=== PATIENT | male | born 1960 | race Caucasian/White ===

== ENCOUNTER 2016-12-19 10:50 | Day surgery (SDC) | payer MEDICAID, OTHER ==
[2016-12-17 11:31] VITALS: BMI 28.8
[~2016-12-19 10:50] MED LIST: LACTATED RINGERS 1,000 ML IV SCH; LIDOCAINE 1% 20 ML VIAL (10MG/ML) FOR IV START INTRADERMA PRN
[2016-12-19 11:03] VITALS: TEMP 97.9
[2016-12-19] MEDS ORDERED: LACTATED RINGERS 1,000 ML IV ONE (11:03)
[2016-12-19 11:28] LABS: Basophils # (A) 0.2 k/uL (0-0.2); Basophils % (A) 2 %; CH 31.7; Eosinophils # (A) 0.2 k/uL (0-0.7); Eosinophils % (A) 3 %; HCT 52.3 % (39.0-53.0); HDW 2.25; HGB 17.4 gm/dL (13.0-17.5); Luc # (Auto) 0.11; Luc % (Auto) 2; Lymphocytes # (A) 1.9 k/uL (1.0-4.8); Lymphocytes % (A) 29 %; MCH 31.1 pg (25.0-35.0); MCHC 33.2 g/dL (31.0-37.0); MCV 93.6 fL (80.0-100.0); Mean Platelet Volume 6.7; Monocytes # (A) 0.5 k/uL (0-1.0); Monocytes % (A) 7 %; Neutrophils # (A) 3.8 k/uL (1.3-7.7); Neutrophils % (A) 57 %; RBC 5.59 m/uL (4.30-5.90); RDW 13.3 % (11.5-15.5); WBC 6.6 k/uL (3.8-10.6); WBC (Perox) 6.29
[2016-12-19 11:39] LABS: ALT 38 U/L (21-72); AST 24 U/L (17-59); Alkaline Phosphatase 55 U/L (38-126); Anion Gap 7 mmol/L; Blood Urea Nitrogen 10 mg/dL (9-20); Calcium 9.2 mg/dL (8.4-10.2); Carbon Dioxide 25 mmol/L (22-30); Chloride 109 mmol/L (98-107); Glucose 93 mg/dL (74-99); Non-African American GFR(MDRD) >60 (>60 ml/min/1.73 sqM); Potassium 4.4 mmol/L (3.5-5.1); Sodium 141 mmol/L (137-145)
[2016-12-19] MEDS ORDERED: PROPOFOL 10 MG/ML 20 ML VIAL IV ONE (12:22)
--- NOTE | 2016-12-19 12:45 | P.OP ---
Date of Procedure: 12/19/16 Preoperative Diagnosis: Screening. Family history of colon CA in a parent. Postoperative Diagnosis: Minute polyp on the ileocecal valve. Procedure(s) Performed: Colonoscopy and snare polypectomy Anesthesia: MAC Surgeon: Kirk Katz Estimated Blood Loss (ml): 0 Pathology: other (Polyp ileocecal valve) Condition: stable Disposition: same day Indications for Procedure: Screening. Family history of colon CA in a parent. Asymptomatic. Operative Findings: Minute ileocecal valve polyp about 3 mm in diameter Description of Procedure: With the patient in the left lateral position rectal digital exam was normal there were no palpable masses. No prostatic masses. The video colonoscope was inserted transanally and advanced all the way to the cecum which was entered and well visualized. Colon was a little tortuous. The mucosa were thoroughly examined. Findings there was a minute sessile polyp on the ileocecal valve about 3 mm in diameter which was removed completely with the snare cautery with good hemostasis. Recommendation high fiber diet. Follow-up colonoscopy in about 5 years.
[2016-12-19 12:46] VITALS: RESP 16
[2016-12-19 13:06] VITALS: BP 144/76; PULSE 74
== END 2016-12-19 13:19 | disposition home or self-care (01) ==
LOC: ORWHC2ENDO 10:50
PROVIDERS: ATTEND Surgery
DX: Z12.11 Encounter for screening for malignant neoplasm of colon (principal); D12.0 Benign neoplasm of cecum; Z80.0 Family history of malignant neoplasm of digestive organs; Q43.8 Other specified congenital malformations of intestine; F17.200 Nicotine dependence, unspecified, uncomplicated
CPT/HCPCS: 88305; 80053; 85025; 45385; G0103; J2704